=== PATIENT | female | born 1960 | race Caucasian/White ===

== ENCOUNTER 2017-12-15 06:32 | Day surgery (SDC) | END 2017-12-15 11:12 | disposition home or self-care (01) ==

== ENCOUNTER 2018-10-20 05:54 | Day surgery (SDC) | payer OTHER ==
[2018-10-20] VITALS (8 sets, daily range): BP systolic 117–165; BP diastolic 59–89; PULSE 96–102; RESP 12–18; Ht 149.9 cm; Wt 61.5 kg
[~2018-10-20] VITALS: Ht 149.9 cm; Wt 61.5 kg
[~2018-10-20 05:54] MED LIST: ATOR40TA68 PO; CALC1TAB79 PO; INSU100I33 SC; LIRA0.6P SQ; METF100010 PO; METF500T24 PO; NPH,100V SQ
[2018-10-20] MEDS ORDERED: LIDOCAINE 4% (MPF) 5 ML INJ INJ SCH (06:00)
[2018-10-20] MEDS ORDERED: ACETAZOLAMIDE 250 MG TAB PO PRN (06:00)
[2018-10-20] MEDS ORDERED: BALANCED SALT SOLN OPH IRRIG 500 ML, EPINEPHrine 0.1 MG, GENTAMICIN 4 MG, VANCOMYCIN 10 MG IRR SCH ×4 (06:00)
[2018-10-20] MEDS ORDERED: NEOMYC/POLYMYX/DEXAM 3.5GM OPH OINT OPER ONE (06:00)
[2018-10-20] MEDS ORDERED: TETRACAINE 0.5% 4 ML OPH OPER SCH (06:00)
[2018-10-20] MEDS ORDERED: TROPICAMIDE 1% 15 ML OPH OPER SCH (06:00)
[2018-10-20] MEDS ORDERED: ACETAMINOPHEN 500 MG TAB PO ONE (06:00)
[2018-10-20] MEDS ORDERED: APRACLONIDINE 1% 0.1 ML OPH OPER PRN (06:00)
[2018-10-20] MEDS ORDERED: LIDOCAINE 4% (MPF) 5 ML INJ ONE (06:50)
[2018-10-20] MEDS ORDERED: TRYPAN BLUE 0.5 ML SYG IO ONE (06:51)
[2018-10-20] MEDS ORDERED: TETRACAINE 0.5% 4 ML OPH ONE (06:51)
[2018-10-20] MEDS ORDERED: TOBRAMYCIN/DEXAMETH 3.5 GM OPH OINT ONE (06:51)
[2018-10-20] MEDS ORDERED: FENTAnyl 50 MCG/ML VIAL IV PRN (07:30)
[2018-10-20] MEDS ORDERED: DIPHENHYDRAMINE 50 MG INJ IV PRN (07:30)
[2018-10-20] MEDS ORDERED: ALBUTEROL 0.083% (NEB) 2.5 MG/3 ML AMP HHN PRN (07:30)
[2018-10-20] MEDS ORDERED: SOD CHLORIDE 0.9% 1,000 ML IV SCH (07:30)
[2018-10-20] MEDS ORDERED: OXYCODONE/ACETAMINOPHEN (5/325) TAB PO PRN (07:30)
[2018-10-20] MEDS ORDERED: LABETALOL HCL 20MG INJ IV PRN (07:30)
[2018-10-20] MEDS ORDERED: ONDANSETRON 4 MG INJ IV PRN (07:30)
[2018-10-20] MEDS ORDERED: ACETAMINOPHEN 325 MG TAB PO PRN (07:30)
[2018-10-20] MEDS ORDERED: hydrALAzine 20 MG INJ IV PRN (07:30)
[2018-10-20] MEDS ORDERED: CARBACHOL 0.01% 1.5 ML OPH INJ ONE (07:34)
[2018-10-20] MEDS ORDERED: MIDAZOLAM 1 MG/ML 2 ML INJ ONE ×2 (07:38→08:49)
[2018-10-20] MEDS ORDERED: FENTAnyl 50 MCG/ML VIAL ONE ×2 (08:06→08:49)
[2018-10-20] MEDS ORDERED: EPINEPHrine 1 MG INJ ONE (08:18)
[2018-10-20] MEDS ORDERED: LABETALOL HCL 20MG INJ ONE (08:24)
[2018-10-20] MEDS ORDERED: PHENYLephrine 2.5% 15 ML OPH OPER SCH (15:00)
== END 2018-10-20 10:47 | disposition home or self-care (01) ==
LOC: SDS 05:54
PROVIDERS: ATTEND Ophthalmology
DX: H25.12 Age-related nuclear cataract, left eye (principal); E78.5 Hyperlipidemia, unspecified; E11.9 Type 2 diabetes mellitus without complications
CPT/HCPCS: 66984; 82962; J0171; J1580; J2250; J3010; J3370; V2632; Z7512; Z7610